=== PATIENT | female | born 1975 | race Native Hawaiian/Other Pacific Islander ===

== ENCOUNTER 2021-12-22 10:39 | Outpatient (CLI) | payer BC | END 2021-12-22 19:08 | disposition home or self-care (01) | LOC: MAMMO 10:39 | PROVIDERS: ATTEND Plastic Surgery | DX: Z12.31 Encounter for screening mammogram for malignant neoplasm of breast (principal) ==

== ENCOUNTER 2022-02-04 10:22 | Outpatient (CLI) | payer BC ==
[2022-02-04 10:47] LABS: PLATELET COUNT 269 K/uL (152-353)
== END 2022-02-04 19:18 | disposition home or self-care (01) ==
LOC: LABW 10:22
PROVIDERS: ATTEND Plastic Surgery
DX: Z01.818 Encounter for other preprocedural examination (principal)
CPT/HCPCS: 36415; 81000; 85027

== ENCOUNTER 2023-03-29 11:41 | Emergency (ER) | payer BC ==
[~2023-03-29] VITALS: Ht 157.5 cm; Wt 68.0 kg
== END 2023-03-29 12:28 | disposition home or self-care (01) ==
LOC: ED 11:41
DX: S61.411A Laceration without foreign body of right hand, initial encounter (principal); W26.0XXA Contact with knife, initial encounter; Z23 Encounter for immunization
CPT/HCPCS: 90715; 99281

== ENCOUNTER 2023-11-23 09:32 | Outpatient (CLI) | payer BC, OTHER | END 2023-11-23 19:06 | disposition home or self-care (01) | LOC: MAMMO 09:32 → LABW 09:32 → MAMMO 19:06 | PROVIDERS: ATTEND Nurse Practitioner Family | DX: Z12.31 Encounter for screening mammogram for malignant neoplasm of breast (principal); R59.0 Localized enlarged lymph nodes; E16.1 Other hypoglycemia; Z83.3 Family history of diabetes mellitus; R53.83 Other fatigue | CPT/HCPCS: 83036 ==